=== PATIENT | male | born 1925 | race Caucasian/White ===

== ENCOUNTER → 2016-08-21 | Outpatient (CLI) | payer MEDICARE, BC ==
[~2016-08-21] MED LIST: ASPI-496 PO; ASPI-515 PO; COLE1TAB4 PO; CYAN10008 PO; CYAN1TAB29 PO; HYDR-3240 PO; LEVO75TA5 PO; OMEP-110 PO
== END | disposition home or self-care (01) ==
LOC: STAR 12:50
PROVIDERS: ATTEND Internal Medicine
DX: Z01.818 Encounter for other preprocedural examination (principal); D64.9 Anemia, unspecified; R63.4 Abnormal weight loss
CPT/HCPCS: 36415; 85025; 93005

== ENCOUNTER 2016-09-02 06:49 | Day surgery (SDC) | payer MEDICARE, BC ==
[~2016-09-02] VITALS: Ht 188 cm; Wt 72.0 kg
[2016-09-02] MEDS ORDERED: LACTATED RINGERS 1,000 ML IV SCH (07:29)
[2016-09-02] MEDS ORDERED: ASPI-496 PO (07:29)
[2016-09-02 07:30] VITALS: BP 111/61
[2016-09-02] MEDS ORDERED: PROPOFOL 10 MG/ML, 50ML ONE (09:12)
[2016-09-02] MEDS ORDERED: SODIUM CHLORIDE 0.9%, 500ML IVBOLUS ONE (12:50)
[2016-09-02] MEDS ORDERED: SODIUM CHLORIDE 0.9% 1,000ML IVBOLUS ONE (13:30)
[2016-09-02] MEDS ORDERED: OMNIPAQUE 350 MG/ML, 100ML BOTTLE ONE (16:07)
== END 2016-09-02 15:25 ==
LOC: OUT 06:49
PROVIDERS: ATTEND Internal Medicine
DX: C18.4 Malignant neoplasm of transverse colon (principal); K57.30 Diverticulosis of large intestine without perforation or abscess without bleeding; K56.69 Other intestinal obstruction; D50.9 Iron deficiency anemia, unspecified; K64.9 Unspecified hemorrhoids; K44.9 Diaphragmatic hernia without obstruction or gangrene; K21.9 Gastro-esophageal reflux disease without esophagitis; E03.9 Hypothyroidism, unspecified; Z98.49 Cataract extraction status, unspecified eye; Z87.39 Personal history of other diseases of the musculoskeletal system and connective tissue; Z79.82 Long term (current) use of aspirin; Z85.46 Personal history of malignant neoplasm of prostate; Z90.49 Acquired absence of other specified parts of digestive tract; Z96.659 Presence of unspecified artificial knee joint
CPT/HCPCS: 36415; 45380; 74177; 82378; 82565; 88305; J2704; J7040; J7120; Q9967

== ENCOUNTER 2016-09-14 16:41 | Inpatient (IN) | payer MEDICARE, BC ==
[~2016-09-14] VITALS: Ht 185.4 cm; Wt 73.2 kg
[~2016-09-14 16:41] MED LIST changes: -APIX2.5T PO; -OMNIPAQUE 350 MG/ML, 75ML BOTTLE ONE
[2016-09-14] MEDS ORDERED: SODIUM CHLORIDE 0.9% 1,000 ML IV ONE (16:53)
[2016-09-14] MEDS ORDERED: SODIUM CHLORIDE FLUSH 10ML SYR IVF ONE ×2 (17:00→18:00)
[2016-09-14 17:58] LABS: BLOOD UREA NITROGEN 32 mg/dL (7-18)
[2016-09-14 18:04] LABS: DIFF TOTAL CELLS COUNTED 100 CELL DIFF
[2016-09-14 18:05] LABS: IS PT STATUS REG ER OR PRE ER? YES
[2016-09-14 18:09] LABS: VERIFY COUNTS? YES
[2016-09-14 18:10] LABS: ANISOCYTOSIS 1+; HYPOCHROMIA 1+; OVALOCYTES 1+; POIKILOCYTOSIS 1+; POLYCHROMASIA 1+; SCHISTOCYTES 1+; SPHEROCYTES 1+
[2016-09-14 18:11] LABS: ACANTHOCYTES 1+
[2016-09-14] MEDS ORDERED: HEPARIN 5,000 UNITS/ML, 1ML ONE (18:22)
[2016-09-14] MEDS ORDERED: HEPARIN 25,000 UNITS/500ML PMX 500 ML ONE (18:22)
[2016-09-14] MEDS ORDERED: HEPARIN 5,000 UNITS/ML, 1ML IV ONE (18:30)
[2016-09-14] MEDS ORDERED: HEPARIN 25,000 UNITS/500ML PMX 500 ML IV PRN (18:30)
[2016-09-14] MEDS ORDERED: HEPARIN 5,000 UNITS/ML, 1ML IV PRN (18:30)
[2016-09-14 19:58] VITALS: BP 118/65
[2016-09-14] MEDS ORDERED: ACETAMINOPHEN 325 MG TABLET PO PRN (21:00)
[2016-09-14] MEDS ORDERED: ONDANSETRON ODT 4 MG PO PRN (21:00)
[2016-09-14 22:18] VITALS: BP 125/63
[2016-09-15 00:10] VITALS: BP 115/59
[2016-09-15 00:43] LABS: IS PT STATUS REG ER OR PRE ER? NO
[2016-09-15 00:47] VITALS: BP 116/65
[2016-09-15 00:57] LABS: OCCBLD OBC PASS
[2016-09-15] MEDS ORDERED: HEPARIN 5,000 UNITS/ML, 1ML ONE (02:08)
[2016-09-15] MEDS: HEPARIN 5,000 UNITS/ML, 1ML IV PRN ×2 (02:23→10:29)
[2016-09-15] MEDS ORDERED: HEPARIN 25,000 UNITS/500ML PMX 500 ML IV PRN (02:30)
[2016-09-15 02:41] VITALS: BP 116/62
[2016-09-15] MEDS ORDERED: COLESTIPOL 1 GM TABLET PO SCH (09:00)
[2016-09-15] MEDS ORDERED: LEVOTHYROXINE 75 MCG TABLET PO SCH (09:00)
[2016-09-15] MEDS ORDERED: OMEPRAZOLE 20 MG CAPSULE.DR PO SCH (09:00)
[2016-09-15 13:18] VITALS: BP 139/70
[2016-09-15] MEDS ORDERED: APIX2.5T PO (14:39)
[2016-09-15] MEDS ORDERED: APIXABAN 2.5 MG TABLET PO SCH (16:00)
== END 2016-09-15 16:40 | disposition home or self-care (01) | DRG 374 ==
LOC: ED 17:20 → EDIP 17:21 → ED 17:35 → 3NW 18:51 → DCLOUNGE 09-15 16:11
PROVIDERS: ADMIT Family Medicine; ATTEND Family Medicine
PROC: 30233N1 Transfusion of Nonautologous Red Blood Cells into Peripheral Vein, Percutaneous Approach (ICD-10-PCS; principal; 2016-09-14)
PROC: 30233N1 Transfusion of Nonautologous Red Blood Cells into Peripheral Vein, Percutaneous Approach (ICD-10-PCS; 2016-09-15)
DX: C18.4 Malignant neoplasm of transverse colon (principal); I26.99 Other pulmonary embolism without acute cor pulmonale; E46 Unspecified protein-calorie malnutrition; D50.9 Iron deficiency anemia, unspecified; E03.9 Hypothyroidism, unspecified; I25.10 Atherosclerotic heart disease of native coronary artery without angina pectoris; N18.9 Chronic kidney disease, unspecified; Z66 Do not resuscitate; R19.5 Other fecal abnormalities; Z85.038 Personal history of other malignant neoplasm of large intestine; Z85.46 Personal history of malignant neoplasm of prostate; Z87.891 Personal history of nicotine dependence; Z68.21 Body mass index [BMI] 21.0-21.9, adult
CPT/HCPCS: 36415; 71260; 80048; 82040; 82272; 82565; 83735; 83880; 84100; 84134; 84484; 85025; 85520; 85610; 85730; 86850; 86900; 86923; 87324; 93005; 93970; 96374; J1644; Q9967; J7030; P9016

== ENCOUNTER → 2016-09-14 | Outpatient (CLI) | payer MEDICARE, BC ==
[~2016-09-14] MED LIST changes: +APIX2.5T PO; +OMNIPAQUE 350 MG/ML, 75ML BOTTLE ONE
== END | disposition home or self-care (01) ==
LOC: CFH 14:14
PROVIDERS: ATTEND Surgery
DX: C18.4 Malignant neoplasm of transverse colon (principal); I26.99 Other pulmonary embolism without acute cor pulmonale; J43.2 Centrilobular emphysema; R19.00 Intra-abdominal and pelvic swelling, mass and lump, unspecified site
CPT/HCPCS: 71260; 82565; Q9967

== ENCOUNTER 2016-09-22 23:48 | Inpatient (IN) | payer MEDICARE, BC ==
[~2016-09-22] VITALS: Ht 185.4 cm; Wt 91.0 kg
[~2016-09-22 23:48] MED LIST changes: +APIX2.5T PO
[2016-09-23] VITALS (7 sets, daily range): BP systolic 97–125; BP diastolic 50–66
[2016-09-23] MEDS ORDERED: SODIUM CHLORIDE 0.9% 1,000ML IVBOLUS ONE (00:30)
[2016-09-23] MEDS ORDERED: ACETAMINOPHEN 325 MG TABLET PO ONE (00:30)
[2016-09-23] MEDS ORDERED: SODIUM CHLORIDE FLUSH 10ML SYR IVF ONE (00:30)
[2016-09-23] MEDS ORDERED: ACETAMINOPHEN 325 MG TABLET ONE (00:40)
[2016-09-23 01:00] LABS: ASPARTATE AMINO TRANSFERASE 22 U/L (15-37); BLOOD UREA NITROGEN 35 mg/dL (7-18)
[2016-09-23] MEDS ORDERED: OMNIPAQUE 350 MG/ML, 100ML BOTTLE ONE (02:16)
[2016-09-23] MEDS ORDERED: PIPERACILLIN/TAZO/PMX 3.375GM 50 ML IVPB ONE (03:00)
[2016-09-23] MEDS ORDERED: SODIUM CHLORIDE 0.9%, 500ML IVBOLUS ONE (03:00)
[2016-09-23] MEDS ORDERED: VANCOMYCIN PER PHARMACY MC ONE (03:00)
[2016-09-23] MEDS ORDERED: PIPERACILLIN/TAZO/PMX 3.375GM 50 ML ONE (03:08)
[2016-09-23] MEDS ORDERED: VANCOMYCIN 1,400 MG in SODIUM CHLORIDE 0.9% 250 ML IV ONE (03:30)
[2016-09-23] MEDS ORDERED: VANCOMYCIN PER PHARMACY MC PRN (04:00)
[2016-09-23] MEDS: SODIUM CHLORIDE 0.9% 1,000 ML IV SCH ×2 (04:09→19:00)
[2016-09-23] MEDS ORDERED: PHARMACOKINETIC MONITORING MC PRN (04:30)
[2016-09-23] MEDS: LEVOTHYROXINE 75 MCG TABLET PO SCH (05:48)
[2016-09-23] MEDS ORDERED: DIPHENHYDRAMINE 50 MG/ML, 1ML IVPush ONE (09:00)
[2016-09-23] MEDS: Cyanocobalamin/Folic Acid** (Vitamin B12-Folic Acid Tablet**) PO SCH (09:00)
[2016-09-23] MEDS ORDERED: PIPERACILLIN/TAZO 2.25 GM in SODIUM CHLORIDE 0.9% 50 ML IV SCH (09:00)
[2016-09-23] MEDS: COLESTIPOL 1 GM TABLET PO SCH (09:43)
[2016-09-23] MEDS: APIXABAN 2.5 MG TABLET PO SCH ×2 (09:43→19:45)
[2016-09-23] MEDS: OMEPRAZOLE 20 MG CAPSULE.DR PO SCH (09:43)
[2016-09-23] MEDS: PIPERACILLIN/TAZO/PMX 3.375GM 50 ML IV SCH ×2 (14:53→19:45)
[2016-09-24 01:35] VITALS: BP 110/64
[2016-09-24] MEDS: PIPERACILLIN/TAZO/PMX 3.375GM 50 ML IV SCH ×4 (02:56→22:09)
[2016-09-24 04:49] LABS: BLOOD UREA NITROGEN 27 mg/dL (7-18)
[2016-09-24] MEDS: SODIUM CHLORIDE 0.9% 1,000 ML IV SCH ×2 (05:19→22:11)
[2016-09-24] MEDS: LEVOTHYROXINE 75 MCG TABLET PO SCH (05:19)
[2016-09-24] MEDS ORDERED: SODIUM CHLORIDE 0.9%, 500ML IVBOLUS ONE (07:00)
[2016-09-24 07:16] VITALS: BP 105/59
[2016-09-24] MEDS: OMEPRAZOLE 20 MG CAPSULE.DR PO SCH (08:17)
[2016-09-24] MEDS: Cyanocobalamin/Folic Acid** (Vitamin B12-Folic Acid Tablet**) PO SCH (08:17)
[2016-09-24] MEDS: APIXABAN 2.5 MG TABLET PO SCH (08:17)
[2016-09-24] MEDS: COLESTIPOL 1 GM TABLET PO SCH (08:17)
[2016-09-24] MEDS ORDERED: VANCOMYCIN 1,300 MG in SODIUM CHLORIDE 0.9% 250 ML IV ONE (10:00)
[2016-09-24] MEDS ORDERED: LIDOCAINE 2%, 20ML ONE (14:26)
[2016-09-24 14:27] VITALS: BP 105/66
[2016-09-24] MEDS ORDERED: FENTANYL PF 100 MCG/2ML ONE (14:29)
[2016-09-24] MEDS: ENOXAPARIN 60 MG/0.6 ML SQ SCH (15:30)
[2016-09-24 19:24] VITALS: BP 127/74
[2016-09-25 01:02] VITALS: BP 129/66
[2016-09-25] MEDS: PIPERACILLIN/TAZO/PMX 3.375GM 50 ML IV SCH ×3 (04:01→16:29)
[2016-09-25 05:25] LABS: OCCBLD OBC PASS
[2016-09-25] MEDS: LEVOTHYROXINE 75 MCG TABLET PO SCH (06:20)
[2016-09-25] MEDS: OMEPRAZOLE 20 MG CAPSULE.DR PO SCH (08:00)
[2016-09-25] MEDS: ENOXAPARIN 60 MG/0.6 ML SQ SCH (08:00)
[2016-09-25] MEDS: Cyanocobalamin/Folic Acid** (Vitamin B12-Folic Acid Tablet**) PO SCH (08:00)
[2016-09-25] MEDS: COLESTIPOL 1 GM TABLET PO SCH (08:00)
[2016-09-25 08:30] VITALS: BP 101/60
[2016-09-25 11:00] VITALS: BP 188/97
[2016-09-25] MEDS: ACETAMINOPHEN 325 MG TABLET PO PRN (11:31)
[2016-09-25 13:54] VITALS: BP 123/70
[2016-09-25] MEDS: SODIUM CHLORIDE 0.9% 1,000 ML IV SCH ×2 (14:38→22:26)
[2016-09-25] MEDS ORDERED: VANCOMYCIN 1,300 MG in SODIUM CHLORIDE 0.9% 250 ML IV ONE (16:00)
[2016-09-25] MEDS ORDERED: TPN PER PHARMACY MC PRN (18:00)
[2016-09-25 19:04] VITALS: BP 115/56
[2016-09-26] VITALS (11 sets, daily range): BP systolic 96–161; BP diastolic 52–94
[2016-09-26] MEDS: ACETAMINOPHEN 325 MG TABLET PO PRN (00:12)
[2016-09-26 05:26] LABS: BLOOD UREA NITROGEN 21 mg/dL (7-18)
[2016-09-26 05:29] LABS: ASPARTATE AMINO TRANSFERASE 21 U/L (15-37)
[2016-09-26] MEDS: LEVOTHYROXINE 75 MCG TABLET PO SCH (05:56)
[2016-09-26] MEDS ORDERED: MAGNESIUM SULFATE PMX 2GM/50ML 50 ML IV ONE (06:00)
[2016-09-26] MEDS ORDERED: DIPHENHYDRAMINE 50 MG/ML, 1ML IVPush ONE (06:00)
[2016-09-26 06:45] LABS: DIFF TOTAL CELLS COUNTED 100 CELL DIFF
[2016-09-26 06:47] LABS: ANISOCYTOSIS 1+; VERIFY COUNTS? YES
[2016-09-26 06:48] LABS: OVALOCYTES 1+; POIKILOCYTOSIS 1+; POLYCHROMASIA 1+
[2016-09-26] MEDS: Cyanocobalamin/Folic Acid** (Vitamin B12-Folic Acid Tablet**) PO SCH (09:00)
[2016-09-26] MEDS: COLESTIPOL 1 GM TABLET PO SCH (09:11)
[2016-09-26] MEDS: OMEPRAZOLE 20 MG CAPSULE.DR PO SCH (09:12)
[2016-09-26] MEDS: SODIUM CHLORIDE 0.9% 1,000 ML IV SCH ×3 (09:13→19:37)
[2016-09-26] MEDS ORDERED: DIPHENHYDRAMINE 50 MG/ML, 1ML ONE (12:00)
[2016-09-26] MEDS ORDERED: AMINO ACID 10% IV SCH (17:00)
[2016-09-26] MEDS ORDERED: DEXTROSE 70% IV SCH (17:00)
[2016-09-26] MEDS ORDERED: FAT EMULSIONS IV SCH (17:00)
[2016-09-26] MEDS ORDERED: FILTER, DISP 1.2 MICRON FOR TPN/PVN IV PRN (17:00)
[2016-09-26] MEDS ORDERED: [UNRECOGNIZED DRUG - OTHER] IV SCH (17:00)
[2016-09-26] MEDS ORDERED: SODIUM CHLORIDE 0.9% 1,000 ML IV SCH (17:00)
[2016-09-27] MEDS ORDERED: INSULIN REGULAR MEDIUM DOSE Q6H X 48HRS SQ-INSULIN SCH (02:00)
[2016-09-27] MEDS ORDERED: DEXTROSE 50%, 50ML SYRINGE IVPush PRN (02:00)
[2016-09-27] MEDS ORDERED: DEXTROSE 10% 500 ML IV PRN (02:00)
[2016-09-27 02:08] VITALS: BP 142/75
[2016-09-27] MEDS: SODIUM CHLORIDE 0.9% 1,000 ML IV SCH ×3 (02:36→21:49)
[2016-09-27 05:08] LABS: BLOOD UREA NITROGEN 21 mg/dL (7-18)
[2016-09-27] MEDS: LEVOTHYROXINE 75 MCG TABLET PO SCH (06:11)
[2016-09-27 06:40] VITALS: BP 131/71
[2016-09-27] MEDS: Cyanocobalamin/Folic Acid** (Vitamin B12-Folic Acid Tablet**) PO SCH (08:46)
[2016-09-27] MEDS: OMEPRAZOLE 20 MG CAPSULE.DR PO SCH (08:50)
[2016-09-27] MEDS: COLESTIPOL 1 GM TABLET PO SCH (08:50)
[2016-09-27 13:42] VITALS: BP 128/75
[2016-09-27 19:27] VITALS: BP 141/84
[2016-09-28 01:26] VITALS: BP 152/68
[2016-09-28] MEDS: SODIUM CHLORIDE 0.9% 1,000 ML IV SCH ×3 (03:38→23:06)
[2016-09-28 04:55] LABS: BLOOD UREA NITROGEN 19 mg/dL (7-18)
[2016-09-28] MEDS: LEVOTHYROXINE 75 MCG TABLET PO SCH (05:46)
[2016-09-28 07:04] VITALS: BP 139/71
[2016-09-28] MEDS ORDERED: SODIUM PHOSPHATE 20 MMOL in SODIUM CHLORIDE 0.9% 500 ML IV ONE (08:00)
[2016-09-28] MEDS: OMEPRAZOLE 20 MG CAPSULE.DR PO SCH (08:42)
[2016-09-28] MEDS: COLESTIPOL 1 GM TABLET PO SCH (08:43)
[2016-09-28] MEDS: Cyanocobalamin/Folic Acid** (Vitamin B12-Folic Acid Tablet**) PO SCH (08:46)
[2016-09-28 13:26] VITALS: BP 145/83
[2016-09-28 19:52] VITALS: BP 155/89
[2016-09-28] MEDS ORDERED: TPN PER PHARMACY MC PRN (20:00)
[2016-09-29 02:35] VITALS: BP 134/82
[2016-09-29] MEDS: SODIUM CHLORIDE 0.9% 1,000 ML IV SCH (04:54)
[2016-09-29] MEDS: LEVOTHYROXINE 75 MCG TABLET PO SCH (04:54)
[2016-09-29 05:55] LABS: BLOOD UREA NITROGEN 18 mg/dL (7-18)
[2016-09-29] MEDS ORDERED: INSULIN REGULAR MEDIUM DOSE QDAY SQ-INSULIN SCH (06:00)
[2016-09-29 07:20] VITALS: BP 158/84
[2016-09-29] MEDS: Cyanocobalamin/Folic Acid** (Vitamin B12-Folic Acid Tablet**) PO SCH (07:58)
[2016-09-29] MEDS: COLESTIPOL 1 GM TABLET PO SCH (07:58)
[2016-09-29] MEDS: OMEPRAZOLE 20 MG CAPSULE.DR PO SCH (07:58)
[2016-09-29 12:57] VITALS: BP 147/84
[2016-09-29] MEDS ORDERED: OMNIPAQUE 350 MG/ML, 100ML BOTTLE ONE (18:56)
[2016-09-29 19:36] VITALS: BP 156/86
[2016-09-30 01:23] VITALS: BP 150/78
[2016-09-30] MEDS ORDERED: SODIUM CHLORIDE 0.9% 1,000 ML IV SCH (03:38)
[2016-09-30] MEDS: LEVOTHYROXINE 75 MCG TABLET PO SCH (05:01)
[2016-09-30 06:30] VITALS: BP 135/75
[2016-09-30 07:38] LABS: BLOOD UREA NITROGEN 14 mg/dL (7-18)
[2016-09-30] MEDS: OMEPRAZOLE 20 MG CAPSULE.DR PO SCH (08:50)
[2016-09-30] MEDS: COLESTIPOL 1 GM TABLET PO SCH (08:51)
[2016-09-30] MEDS: SODIUM CHLORIDE 0.9% 1,000 ML IV SCH ×2 (08:51→21:38)
[2016-09-30] MEDS: Cyanocobalamin/Folic Acid** (Vitamin B12-Folic Acid Tablet**) PO SCH (09:00)
[2016-09-30 13:05] VITALS: BP 152/76
[2016-09-30] MEDS ORDERED: GOLYTELY 4,000ML ORAL.SOL PO ONE (18:00)
[2016-09-30] MEDS: NEOMYCIN SULFATE 500 MG TABLET PO SCH ×2 (18:08→20:34)
[2016-09-30] MEDS: metroNIDAZOLE 500 MG TABLET PO SCH ×2 (18:08→20:35)
[2016-09-30 20:32] VITALS: BP 135/87
[2016-10-01 02:10] VITALS: BP 137/78
[2016-10-01] MEDS: LEVOTHYROXINE 75 MCG TABLET PO SCH (03:58)
[2016-10-01] MEDS: NEOMYCIN SULFATE 500 MG TABLET PO SCH (03:58)
[2016-10-01] MEDS: metroNIDAZOLE 500 MG TABLET PO SCH (03:59)
[2016-10-01 05:23] LABS: ASPARTATE AMINO TRANSFERASE 34 U/L (15-37); BLOOD UREA NITROGEN 10 mg/dL (7-18)
[2016-10-01] MEDS ORDERED: MAGNESIUM SULFATE PMX 2GM/50ML 50 ML IV ONE (06:00)
[2016-10-01 06:48] VITALS: BP 136/78
[2016-10-01] MEDS: OMEPRAZOLE 20 MG CAPSULE.DR PO SCH (07:30)
[2016-10-01] MEDS: Cyanocobalamin/Folic Acid** (Vitamin B12-Folic Acid Tablet**) PO SCH (07:40)
[2016-10-01] MEDS: COLESTIPOL 1 GM TABLET PO SCH (07:40)
[2016-10-01] MEDS: SODIUM CHLORIDE 0.9% 1,000 ML IV SCH (10:40)
[2016-10-01] MEDS ORDERED: PROPOFOL 10 MG/ML, 20ML ONE (13:04)
[2016-10-01] MEDS ORDERED: ROCURONIUM 10 MG/ML ONE (13:04)
[2016-10-01] MEDS ORDERED: PHENYLEPHRINE 10 MG/ML ONE (13:04)
[2016-10-01] MEDS ORDERED: CEFOTETAN 2 GM ONE (13:04)
[2016-10-01] MEDS ORDERED: BUPIVACAINE/PF 0.25% ONE (13:34)
[2016-10-01] MEDS ORDERED: FENTANYL PF 200 MCG, BUPIVACAINE/PF 0.5%, 30ML 20 ML in SODIUM CHLORIDE 0.9% 76 ML EPIDCONT SCH (13:41)
[2016-10-01] MEDS ORDERED: PROMETHAZINE 25 MG/ML, 1ML IV PRN (14:00)
[2016-10-01] MEDS ORDERED: DO NOT GIVE XX SCH ×2 (14:00)
[2016-10-01] MEDS ORDERED: FENTANYL PF 100 MCG/2ML ONE (17:45)
[2016-10-01] MEDS: FENTANYL PF 100 MCG/2ML IV PRN ×2 (17:49→18:03)
[2016-10-01 18:50] VITALS: BP 134/77
[2016-10-01] MEDS ORDERED: LORazepam 2 MG/ML, 1ML IV PRN (19:00)
[2016-10-01] MEDS ORDERED: LORazepam 1MG TABLET PO PRN (19:00)
[2016-10-01] MEDS: FENTANYL PF 100 MCG/2ML EPIDPUSH PRN ×2 (21:03→21:51)
[2016-10-01] MEDS: CEFOTETAN PMX 2GM/50ML 50 ML IVPB SCH (21:51)
[2016-10-01] MEDS: POTASSIUM CHLORIDE 20 MEQ in D5%-0.45% NACL 1,000 ML IV SCH (21:51)
[2016-10-01] MEDS: SODIUM CHLORIDE FLUSH 10ML SYR IVF SCH (21:52)
[2016-10-01 23:49] VITALS: BP 144/88
[2016-10-02] MEDS: FENTANYL PF 100 MCG/2ML EPIDPUSH PRN (00:18)
[2016-10-02] MEDS ORDERED: PHARMACY INSTRUCTION MC PRN (02:00)
[2016-10-02] MEDS: FENTANYL EPIDCONT SCH ×2 (03:24→17:34)
[2016-10-02] MEDS: BUPIVACAINE EPIDCONT SCH ×2 (03:24→17:34)
[2016-10-02] MEDS: SODIUM CHLORIDE 0.9% EPIDCONT SCH ×2 (03:24→17:34)
[2016-10-02 03:33] VITALS: BP 139/82
[2016-10-02] MEDS: LEVOTHYROXINE 75 MCG TABLET PO SCH (04:31)
[2016-10-02 05:34] LABS: BLOOD UREA NITROGEN 13 mg/dL (7-18)
[2016-10-02] MEDS: POTASSIUM CHLORIDE 20 MEQ in D5%-0.45% NACL 1,000 ML IV SCH ×2 (05:34→13:05)
[2016-10-02] MEDS ORDERED: BUPIVACAINE 0.25% ONE (06:18)
[2016-10-02 06:26] LABS: DIFF TOTAL CELLS COUNTED 100 CELL DIFF
[2016-10-02 06:29] LABS: VERIFY COUNTS? YES
[2016-10-02] MEDS: OMEPRAZOLE 20 MG CAPSULE.DR PO SCH (07:30)
[2016-10-02 07:50] VITALS: BP 151/80
[2016-10-02] MEDS: Cyanocobalamin/Folic Acid** (Vitamin B12-Folic Acid Tablet**) PO SCH (08:58)
[2016-10-02] MEDS: COLESTIPOL 1 GM TABLET PO SCH (08:58)
[2016-10-02] MEDS: SODIUM CHLORIDE FLUSH 10ML SYR IVF SCH ×2 (09:00→20:30)
[2016-10-02] MEDS: PIPERACILLIN/TAZO/PMX 3.375GM 50 ML IV SCH ×2 (09:10→15:03)
[2016-10-02] MEDS: CEFOTETAN PMX 2GM/50ML 50 ML IVPB SCH (10:22)
[2016-10-02 13:27] VITALS: BP 137/81
[2016-10-02] MEDS ORDERED: FENTANYL PF 200 MCG, BUPIVACAINE/PF 0.5%, 30ML 20 ML in SODIUM CHLORIDE 0.9% 76 ML EPIDCONT SCH (13:41)
[2016-10-02] MEDS ORDERED: INSULIN REGULAR HIGH DOSE Q6H X 48HRS SQ-INSULIN SCH (15:00)
[2016-10-02] MEDS: PANTOPRAZOLE 40 MG IV IVPush SCH (15:03)
[2016-10-02] MEDS ORDERED: DEXTROSE 10% 500 ML IV PRN (17:00)
[2016-10-02] MEDS ORDERED: AMINO ACID 10% IV SCH (17:00)
[2016-10-02] MEDS ORDERED: FAT EMULSIONS IV SCH (17:00)
[2016-10-02] MEDS ORDERED: [UNRECOGNIZED DRUG - OTHER] IV SCH (17:00)
[2016-10-02] MEDS ORDERED: DEXTROSE 70% IV SCH (17:00)
[2016-10-02] MEDS ORDERED: FILTER, DISP 1.2 MICRON FOR TPN/PVN IV PRN (17:00)
[2016-10-02] MEDS ORDERED: TPN PER PHARMACY MC PRN (17:00)
[2016-10-02] MEDS ORDERED: DEXTROSE 50%, 50ML SYRINGE IVPush PRN (17:00)
[2016-10-02 18:49] VITALS: BP 147/78
[2016-10-02] MEDS: D5%-0.45% NACL 1,000 ML IV SCH (19:26)
[2016-10-02] MEDS: PIPERACILLIN/TAZO(ZOSYN) 2.25 GM in NS 50 ML IVPB SCH (20:30)
[2016-10-02] MEDS: INSULIN REGULAR HIGH DOSE Q6H X 48HRS SQ-INSULIN SCH (23:46)
[2016-10-03 02:07] VITALS: BP 164/85
[2016-10-03] MEDS: PIPERACILLIN/TAZO(ZOSYN) 2.25 GM in NS 50 ML IVPB SCH ×4 (03:52→20:29)
[2016-10-03] MEDS: INSULIN REGULAR HIGH DOSE Q6H X 48HRS SQ-INSULIN SCH ×4 (05:00→23:00)
[2016-10-03] MEDS: BUPIVACAINE EPIDCONT SCH ×2 (05:33→15:53)
[2016-10-03] MEDS: SODIUM CHLORIDE 0.9% EPIDCONT SCH ×2 (05:33→15:53)
[2016-10-03] MEDS: FENTANYL EPIDCONT SCH ×2 (05:33→15:53)
[2016-10-03 05:59] LABS: BLOOD UREA NITROGEN 13 mg/dL (7-18)
[2016-10-03] MEDS: LEVOTHYROXINE 75 MCG TABLET PO SCH ×2 (06:00→23:07)
[2016-10-03] MEDS: D5%-0.45% NACL 1,000 ML IV SCH ×2 (06:25→20:30)
[2016-10-03] MEDS: Cyanocobalamin/Folic Acid** (Vitamin B12-Folic Acid Tablet**) PO SCH (07:34)
[2016-10-03] MEDS: COLESTIPOL 1 GM TABLET PO SCH (07:34)
[2016-10-03] MEDS: SODIUM CHLORIDE FLUSH 10ML SYR IVF SCH ×2 (08:16→20:30)
[2016-10-03] MEDS: PANTOPRAZOLE 40 MG IV IVPush SCH (08:16)
[2016-10-03 09:11] VITALS: BP 150/79
[2016-10-03] MEDS ORDERED: FILTER, DISP 1.2 MICRON FOR TPN/PVN IV PRN (09:30)
[2016-10-03 14:40] VITALS: BP 160/83
[2016-10-03] MEDS ORDERED: [UNRECOGNIZED DRUG - OTHER] IV SCH (17:00)
[2016-10-03] MEDS ORDERED: AMINO ACID 10% IV SCH (17:00)
[2016-10-03] MEDS ORDERED: FAT EMULSIONS IV SCH (17:00)
[2016-10-03] MEDS ORDERED: DEXTROSE 70% IV SCH (17:00)
[2016-10-03] MEDS: FILTER, DISP 1.2 MICRON FOR TPN/PVN IV PRN (17:18)
[2016-10-03 19:41] VITALS: BP 151/98
[2016-10-04 00:55] VITALS: BP 148/78
[2016-10-04] MEDS: PIPERACILLIN/TAZO(ZOSYN) 2.25 GM in NS 50 ML IVPB SCH ×4 (02:24→23:04)
[2016-10-04] MEDS ORDERED: BUPIVACAINE EPIDCONT SCH (02:30)
[2016-10-04] MEDS ORDERED: SODIUM CHLORIDE 0.9% EPIDCONT SCH (02:30)
[2016-10-04] MEDS ORDERED: FENTANYL EPIDCONT SCH (02:30)
[2016-10-04 04:17] LABS: BLOOD UREA NITROGEN 11 mg/dL (7-18)
[2016-10-04] MEDS: INSULIN REGULAR HIGH DOSE Q6H X 48HRS SQ-INSULIN SCH ×4 (05:00→23:00)
[2016-10-04 07:06] VITALS: BP 150/87
[2016-10-04] MEDS: COLESTIPOL 1 GM TABLET PO SCH (07:35)
[2016-10-04] MEDS: Cyanocobalamin/Folic Acid** (Vitamin B12-Folic Acid Tablet**) PO SCH (07:35)
[2016-10-04] MEDS: SODIUM CHLORIDE FLUSH 10ML SYR IVF SCH ×2 (08:00→21:17)
[2016-10-04] MEDS: PANTOPRAZOLE 40 MG IV IVPush SCH (08:00)
[2016-10-04 11:17] LABS: IS PT STATUS REG ER OR PRE ER? NO
[2016-10-04] MEDS ORDERED: LACTATED RINGERS 500 ML IVBOLUS ONE (12:00)
[2016-10-04] MEDS ORDERED: HYDROmorphone 2 MG/ML, 1ML IVPush PRN (12:30)
[2016-10-04] MEDS ORDERED: SODIUM CHLORIDE 0.9% 1,000 ML IV ONE (12:30)
[2016-10-04] MEDS ORDERED: SODIUM CHLORIDE 0.9% 1,000ML IVBOLUS ONE (12:30)
[2016-10-04] MEDS: ENOXAPARIN 40 MG/0.4 ML SQ SCH (13:34)
[2016-10-04 14:37] VITALS: BP 131/77
[2016-10-04] MEDS ORDERED: DEXTROSE 70% IV SCH (17:00)
[2016-10-04] MEDS ORDERED: [UNRECOGNIZED DRUG - OTHER] IV SCH (17:00)
[2016-10-04] MEDS ORDERED: FAT EMULSIONS IV SCH (17:00)
[2016-10-04] MEDS ORDERED: AMINO ACID 10% IV SCH (17:00)
[2016-10-04 17:21] LABS: ASPARTATE AMINO TRANSFERASE 11 U/L (15-37); BLOOD UREA NITROGEN 13 mg/dL (7-18)
[2016-10-04 17:27] LABS: IS PT STATUS REG ER OR PRE ER? NO
[2016-10-04] MEDS ORDERED: NALOXONE 1 MG/ML, 2ML ONE (17:39)
[2016-10-04 19:00] VITALS: BP 115/76
[2016-10-04 23:52] LABS: IS PT STATUS REG ER OR PRE ER? NO
[2016-10-05 02:30] VITALS: BP 113/73
[2016-10-05] MEDS: LEVOTHYROXINE 75 MCG TABLET PO SCH (05:04)
[2016-10-05] MEDS: PIPERACILLIN/TAZO(ZOSYN) 2.25 GM in NS 50 ML IVPB SCH ×4 (05:04→22:55)
[2016-10-05 05:23] LABS: ASPARTATE AMINO TRANSFERASE 11 U/L (15-37); BLOOD UREA NITROGEN 16 mg/dL (7-18)
[2016-10-05 05:33] LABS: IS PT STATUS REG ER OR PRE ER? NO
[2016-10-05 06:40] VITALS: BP 134/80
[2016-10-05] MEDS: Cyanocobalamin/Folic Acid** (Vitamin B12-Folic Acid Tablet**) PO SCH (07:54)
[2016-10-05] MEDS: COLESTIPOL 1 GM TABLET PO SCH (07:55)
[2016-10-05] MEDS: PANTOPRAZOLE 40 MG IV IVPush SCH (08:17)
[2016-10-05] MEDS: SODIUM CHLORIDE FLUSH 10ML SYR IVF SCH ×2 (08:17→21:05)
[2016-10-05] MEDS: LEVOTHYROXINE 100 MCG INJ IVPush SCH (08:17)
[2016-10-05] MEDS: INSULIN REGULAR HIGH DOSE QDAY SQ-INSULIN SCH (08:24)
[2016-10-05] MEDS: D5%-0.45% NACL 1,000 ML IV SCH (12:24)
[2016-10-05] MEDS: ENOXAPARIN 40 MG/0.4 ML SQ SCH (12:33)
[2016-10-05 13:03] VITALS: BP 125/78
[2016-10-05] MEDS: HYDROmorphone 2 MG/ML, 1ML IVPush PRN ×2 (14:24→17:16)
[2016-10-05] MEDS ORDERED: DEXTROSE 70% IV SCH (17:00)
[2016-10-05] MEDS ORDERED: FAT EMULSIONS IV SCH (17:00)
[2016-10-05] MEDS ORDERED: [UNRECOGNIZED DRUG - OTHER] IV SCH (17:00)
[2016-10-05] MEDS ORDERED: AMINO ACID 10% IV SCH (17:00)
[2016-10-05 19:16] VITALS: BP 118/92
[2016-10-05] MEDS: FILTER, DISP 1.2 MICRON FOR TPN/PVN IV PRN (21:06)
[2016-10-06 01:24] VITALS: BP 112/66
[2016-10-06] MEDS: PIPERACILLIN/TAZO(ZOSYN) 2.25 GM in NS 50 ML IVPB SCH ×3 (04:58→18:39)
[2016-10-06 06:30] LABS: BLOOD UREA NITROGEN 20 mg/dL (7-18)
[2016-10-06] MEDS: COLESTIPOL 1 GM TABLET PO SCH (07:16)
[2016-10-06] MEDS: INSULIN REGULAR HIGH DOSE QDAY SQ-INSULIN SCH (07:16)
[2016-10-06] MEDS: Cyanocobalamin/Folic Acid** (Vitamin B12-Folic Acid Tablet**) PO SCH (07:16)
[2016-10-06] MEDS: PANTOPRAZOLE 40 MG IV IVPush SCH (07:42)
[2016-10-06] MEDS: SODIUM CHLORIDE FLUSH 10ML SYR IVF SCH ×2 (07:42→19:46)
[2016-10-06] MEDS: LEVOTHYROXINE 100 MCG INJ IVPush SCH (07:42)
[2016-10-06] MEDS: HYDROmorphone 2 MG/ML, 1ML IVPush PRN ×3 (07:42→23:06)
[2016-10-06 07:43] VITALS: BP 150/81
[2016-10-06] MEDS: ENOXAPARIN 40 MG/0.4 ML SQ SCH (11:50)
[2016-10-06 13:24] VITALS: BP 145/83
[2016-10-06] MEDS ORDERED: OMNIPAQUE 350 MG/ML, 150 ML BOTTLE ONE (16:07)
[2016-10-06] MEDS ORDERED: DEXTROSE 70% IV SCH (17:00)
[2016-10-06] MEDS ORDERED: AMINO ACID 10% IV SCH (17:00)
[2016-10-06] MEDS ORDERED: FAT EMULSIONS IV SCH (17:00)
[2016-10-06] MEDS ORDERED: [UNRECOGNIZED DRUG - OTHER] IV SCH (17:00)
[2016-10-06] MEDS: FILTER, DISP 1.2 MICRON FOR TPN/PVN IV PRN (18:39)
[2016-10-06] MEDS: ENOXAPARIN 80 MG/0.8 ML SQ SCH (19:46)
[2016-10-06] MEDS: D5%-0.45% NACL 1,000 ML IV SCH (19:47)
[2016-10-06] MEDS ORDERED: ENOXAPARIN 80 MG/0.8 ML SQ SCH (20:00)
[2016-10-06 21:12] VITALS: BP 122/79
[2016-10-07] MEDS: PIPERACILLIN/TAZO(ZOSYN) 2.25 GM in NS 50 ML IVPB SCH ×4 (00:48→18:38)
[2016-10-07 02:08] VITALS: BP 118/75
[2016-10-07] MEDS: HYDROmorphone 2 MG/ML, 1ML IVPush PRN ×3 (04:17→16:40)
[2016-10-07 05:01] LABS: BLOOD UREA NITROGEN 27 mg/dL (7-18)
[2016-10-07 07:59] VITALS: BP 127/70
[2016-10-07] MEDS: COLESTIPOL 1 GM TABLET PO SCH (08:06)
[2016-10-07] MEDS: Cyanocobalamin/Folic Acid** (Vitamin B12-Folic Acid Tablet**) PO SCH (08:07)
[2016-10-07] MEDS: INSULIN REGULAR HIGH DOSE QDAY SQ-INSULIN SCH (08:30)
[2016-10-07] MEDS: SODIUM CHLORIDE FLUSH 10ML SYR IVF SCH ×2 (08:31→20:59)
[2016-10-07] MEDS: ENOXAPARIN 80 MG/0.8 ML SQ SCH ×2 (08:31→20:59)
[2016-10-07] MEDS: LEVOTHYROXINE 100 MCG INJ IVPush SCH (08:31)
[2016-10-07] MEDS: PANTOPRAZOLE 40 MG IV IVPush SCH (08:33)
[2016-10-07 12:50] LABS: OCCBLD OBC PASS
[2016-10-07 13:55] VITALS: BP 142/78
[2016-10-07] MEDS ORDERED: DEXTROSE 70% IV SCH (17:00)
[2016-10-07] MEDS ORDERED: FAT EMULSIONS IV SCH (17:00)
[2016-10-07] MEDS ORDERED: AMINO ACID 10% IV SCH (17:00)
[2016-10-07] MEDS ORDERED: [UNRECOGNIZED DRUG - OTHER] IV SCH (17:00)
[2016-10-07] MEDS ORDERED: FILTER, DISP 1.2 MICRON FOR TPN/PVN IV PRN (17:00)
[2016-10-07] MEDS: D5%-0.45% NACL 1,000 ML IV SCH (20:58)
[2016-10-07 22:18] VITALS: BP 116/67
[2016-10-08 01:00] VITALS: BP 134/71
[2016-10-08] MEDS: PIPERACILLIN/TAZO(ZOSYN) 2.25 GM in NS 50 ML IVPB SCH ×2 (03:03→06:36)
[2016-10-08 06:04] LABS: BLOOD UREA NITROGEN 29 mg/dL (7-18)
[2016-10-08 07:14] VITALS: BP 149/73
[2016-10-08] MEDS: SODIUM CHLORIDE FLUSH 10ML SYR IVF SCH ×2 (09:09→21:22)
[2016-10-08] MEDS: Cyanocobalamin/Folic Acid** (Vitamin B12-Folic Acid Tablet**) PO SCH (09:09)
[2016-10-08] MEDS: INSULIN REGULAR HIGH DOSE QDAY SQ-INSULIN SCH (09:09)
[2016-10-08] MEDS: COLESTIPOL 1 GM TABLET PO SCH (09:09)
[2016-10-08] MEDS: PANTOPRAZOLE 40 MG IV IVPush SCH (09:59)
[2016-10-08] MEDS: LEVOTHYROXINE 100 MCG INJ IVPush SCH (10:03)
[2016-10-08] MEDS: HEPARIN 5,000 UNITS/ML, 1ML SQ SCH ×2 (12:31→21:20)
[2016-10-08 14:42] VITALS: BP 121/71
[2016-10-08] MEDS ORDERED: DEXTROSE 70% IV SCH (17:00)
[2016-10-08] MEDS ORDERED: FAT EMULSIONS IV SCH (17:00)
[2016-10-08] MEDS ORDERED: [UNRECOGNIZED DRUG - OTHER] IV SCH (17:00)
[2016-10-08] MEDS ORDERED: FILTER, DISP 1.2 MICRON FOR TPN/PVN IV PRN (17:00)
[2016-10-08] MEDS ORDERED: AMINO ACID 10% IV SCH (17:00)
[2016-10-08] MEDS ORDERED: D5%-0.45% NACL 1,000 ML IV SCH (18:10)
[2016-10-08 18:28] VITALS: BP 127/71
[2016-10-09 02:10] VITALS: BP 144/88
[2016-10-09] MEDS: LEVOTHYROXINE 75 MCG TABLET PO SCH (05:39)
[2016-10-09] MEDS: HEPARIN 5,000 UNITS/ML, 1ML SQ SCH ×3 (05:39→20:25)
[2016-10-09 06:25] LABS: BLOOD UREA NITROGEN 29 mg/dL (7-18)
[2016-10-09 06:35] VITALS: BP 138/78
[2016-10-09] MEDS: INSULIN REGULAR HIGH DOSE QDAY SQ-INSULIN SCH (07:37)
[2016-10-09] MEDS: OMEPRAZOLE 20 MG CAPSULE.DR PO SCH (09:34)
[2016-10-09] MEDS: Cyanocobalamin/Folic Acid** (Vitamin B12-Folic Acid Tablet**) PO SCH (09:35)
[2016-10-09] MEDS: SODIUM CHLORIDE FLUSH 10ML SYR IVF SCH ×2 (09:35→20:25)
[2016-10-09] MEDS: COLESTIPOL 1 GM TABLET PO SCH (09:36)
[2016-10-09 15:00] VITALS: BP 132/72
[2016-10-09 19:31] VITALS: BP 122/76
[2016-10-10] MEDS: ACETAMINOPHEN 325 MG TABLET PO PRN (00:29)
[2016-10-10 02:42] VITALS: BP 123/78
[2016-10-10] MEDS: HEPARIN 5,000 UNITS/ML, 1ML SQ SCH (05:56)
[2016-10-10 06:09] LABS: BLOOD UREA NITROGEN 28 mg/dL (7-18)
[2016-10-10] MEDS: LEVOTHYROXINE 75 MCG TABLET PO SCH (06:42)
[2016-10-10] MEDS: OMEPRAZOLE 20 MG CAPSULE.DR PO SCH (06:42)
[2016-10-10 07:42] VITALS: BP 140/76
[2016-10-10] MEDS: COLESTIPOL 1 GM TABLET PO SCH (09:40)
[2016-10-10] MEDS: Cyanocobalamin/Folic Acid** (Vitamin B12-Folic Acid Tablet**) PO SCH (09:40)
[2016-10-10] MEDS: SODIUM CHLORIDE FLUSH 10ML SYR IVF SCH ×2 (09:40→21:46)
[2016-10-10 14:06] VITALS: BP 98/62
[2016-10-10 19:24] VITALS: BP 115/66
[2016-10-11 03:14] VITALS: BP 124/77
[2016-10-11 06:04] LABS: BLOOD UREA NITROGEN 26 mg/dL (7-18)
[2016-10-11] MEDS: LEVOTHYROXINE 75 MCG TABLET PO SCH (07:29)
[2016-10-11] MEDS: OMEPRAZOLE 20 MG CAPSULE.DR PO SCH (07:30)
[2016-10-11 08:25] VITALS: BP 131/79
[2016-10-11] MEDS: SODIUM CHLORIDE FLUSH 10ML SYR IVF SCH ×2 (08:44→20:08)
[2016-10-11] MEDS: COLESTIPOL 1 GM TABLET PO SCH (08:45)
[2016-10-11] MEDS: Cyanocobalamin/Folic Acid** (Vitamin B12-Folic Acid Tablet**) PO SCH (08:45)
[2016-10-11 14:59] VITALS: BP 135/82
[2016-10-11 19:52] VITALS: BP 116/61
[2016-10-12 01:38] VITALS: BP 106/53
[2016-10-12] MEDS: LEVOTHYROXINE 75 MCG TABLET PO SCH (05:58)
[2016-10-12 06:59] VITALS: BP 110/63
[2016-10-12] MEDS: OMEPRAZOLE 20 MG CAPSULE.DR PO SCH (07:23)
[2016-10-12] MEDS: COLESTIPOL 1 GM TABLET PO SCH (07:23)
[2016-10-12] MEDS: SODIUM CHLORIDE FLUSH 10ML SYR IVF SCH (07:23)
[2016-10-12] MEDS: Cyanocobalamin/Folic Acid** (Vitamin B12-Folic Acid Tablet**) PO SCH (09:00)
[2016-10-12] MEDS ORDERED: TAMSULOSIN 0.4 MG CAP.ER.24H PO SCH (11:00)
[2016-10-12] MEDS ORDERED: TRAM50TA2 PO (12:42)
[2016-10-12] MEDS ORDERED: TAMS-11 PO (12:42)
[2016-10-12 13:30] VITALS: BP 105/67
[2016-10-12 13:31] VITALS: BP 133/86
== END 2016-10-12 17:30 | DRG 853 ==
LOC: ED 23:59 → EDIP 09-23 02:45 → 3NW 09-23 03:44 → 4NOR 10-01 18:25 → 5SO 10-04 11:48 → 4NOR 10-08 06:06
PROVIDERS: ADMIT Family Medicine; ATTEND Family Medicine
PROC: 30233N1 Transfusion of Nonautologous Red Blood Cells into Peripheral Vein, Percutaneous Approach (ICD-10-PCS; 2016-09-23)
PROC: 06H03DZ Insertion of Intraluminal Device into Inferior Vena Cava, Percutaneous Approach (ICD-10-PCS; 2016-09-24)
PROC: 30233N1 Transfusion of Nonautologous Red Blood Cells into Peripheral Vein, Percutaneous Approach (ICD-10-PCS; 2016-09-26)
PROC: 0DB60ZZ Excision of Stomach, Open Approach (ICD-10-PCS; 2016-10-01)
PROC: 0DBL0ZZ Excision of Transverse Colon, Open Approach (ICD-10-PCS; 2016-10-01)
PROC: 0DB80ZZ Excision of Small Intestine, Open Approach (ICD-10-PCS; 2016-10-01)
PROC: 30233N1 Transfusion of Nonautologous Red Blood Cells into Peripheral Vein, Percutaneous Approach (ICD-10-PCS; 2016-10-01)
PROC: 0DTF0ZZ Resection of Right Large Intestine, Open Approach (ICD-10-PCS; principal; 2016-10-01 13:30)
PROC: 02HV33Z Insertion of Infusion Device into Superior Vena Cava, Percutaneous Approach (ICD-10-PCS; 2016-10-02)
PROC: B548ZZA Ultrasonography of Superior Vena Cava, Guidance (ICD-10-PCS; 2016-10-02)
DX: A41.9 Sepsis, unspecified organism (principal); E43 Unspecified severe protein-calorie malnutrition; I26.99 Other pulmonary embolism without acute cor pulmonale; C18.4 Malignant neoplasm of transverse colon; R64 Cachexia; D68.59 Other primary thrombophilia; J90 Pleural effusion, not elsewhere classified; K56.7 Ileus, unspecified; K92.2 Gastrointestinal hemorrhage, unspecified; E87.2 Acidosis; R65.20 Severe sepsis without septic shock; D50.0 Iron deficiency anemia secondary to blood loss (chronic); E03.9 Hypothyroidism, unspecified; I25.10 Atherosclerotic heart disease of native coronary artery without angina pectoris; K21.9 Gastro-esophageal reflux disease without esophagitis; N18.9 Chronic kidney disease, unspecified; Z66 Do not resuscitate; Z79.01 Long term (current) use of anticoagulants; Z85.038 Personal history of other malignant neoplasm of large intestine; Z68.26 Body mass index [BMI] 26.0-26.9, adult; Z85.46 Personal history of malignant neoplasm of prostate; Z87.891 Personal history of nicotine dependence; Z90.3 Acquired absence of stomach [part of]; Z90.49 Acquired absence of other specified parts of digestive tract
CPT/HCPCS: 36415; 36569; 37191; 71010; 74000; 74177; 74241; 76937; 77001; 80048; 80053; 80202; 81003; 82040; 82272; 82962; 83605; 83735; 84100; 84134; 84145; 84478; 84484; 85014; 85018; 85025; 85610; 85730; 86850; 86900; 86923; 87040; 87324; 88300; 88307; 88309; 93005; 96361; 96365; J0610; J1170; J1644; J1650; J1815; J2543; J2704; J3010; J3370; J3475; J3480; J3490; Q9967; C1751; C1769; C1880; C9113; J1200; J2310; J2370; J3420; J7030; J7040; J7050; P9016; S0074

== ENCOUNTER 2016-12-18 14:07 | Inpatient (IN) | payer MEDICARE, BC ==
[~2016-12-18] VITALS: Ht 188 cm; Wt 92.2 kg
[~2016-12-18 14:07] MED LIST changes: -COLE1TAB4 PO; +COLE1TAB5 PO; +CYAN100072 PO; -CYAN10008 PO; +TAMS-11 PO; +TRAM50TA2 PO
[2016-12-18] MEDS ORDERED: MORPHINE SULFATE 4 MG/ML, 1ML IVPush PRN (14:30)
[2016-12-18] MEDS ORDERED: ONDANSETRON 2MG/ML, 2ML IVPush ONE (14:30)
[2016-12-18] MEDS ORDERED: PLEASE ENTER HEIGHT AND WEIGHT MC SCH (15:00)
[2016-12-18] MEDS ORDERED: ONDANSETRON 2MG/ML, 2ML ONE (15:01)
[2016-12-18] MEDS ORDERED: MORPHINE SULFATE 4 MG/ML, 1ML ONE (15:01)
[2016-12-18 15:06] LABS: HEMATOCRIT 31.2 % (39.2-51.8); HEMOGLOBIN 10.4 g/dL (13.7-18.0); WHITE BLOOD COUNT 11.9 x10^3/uL (3.4-10)
[2016-12-18 15:14] LABS: ASPARTATE AMINO TRANSFERASE 12 U/L (15-37); BLOOD UREA NITROGEN 33 mg/dL (7-18)
[2016-12-18] MEDS ORDERED: HEPARIN 5,000 UNITS/ML, 1ML IV ONE (15:30)
[2016-12-18] MEDS ORDERED: HEPARIN 5,000 UNITS/ML, 1ML IV PRN (15:30)
[2016-12-18] MEDS ORDERED: HEPARIN 25,000 UNITS/500ML PMX 500 ML IV PRN (15:30)
[2016-12-18 15:40] LABS: DIFF TOTAL CELLS COUNTED 100 CELL DIFF
[2016-12-18 15:45] LABS: VERIFY COUNTS? YES
[2016-12-18 15:46] LABS: ANISOCYTOSIS 1+
[2016-12-18] MEDS ORDERED: SODIUM CHLORIDE 0.9% 1,000 ML IV SCH (16:00)
[2016-12-18] MEDS ORDERED: ONDANSETRON 2MG/ML, 2ML IVPush PRN (16:00)
[2016-12-18 16:31] VITALS: BP 136/80
[2016-12-18] MEDS: VANCOMYCIN 50 MG/ML ORAL SUSP PO SCH ×2 (17:00→22:48)
[2016-12-18] MEDS: MORPHINE SULFATE 4 MG/ML, 1ML IVPush PRN ×2 (18:43→23:18)
[2016-12-18 20:01] VITALS: BP 120/63
[2016-12-18] MEDS: OXYcodone/APAP 5/325MG TABLET PO PRN (20:46)
[2016-12-19 01:46] VITALS: BP 114/58
[2016-12-19] MEDS: LEVOTHYROXINE 75 MCG TABLET PO SCH (04:42)
[2016-12-19] MEDS: MORPHINE SULFATE 4 MG/ML, 1ML IVPush PRN (04:42)
[2016-12-19] MEDS: VANCOMYCIN 50 MG/ML ORAL SUSP PO SCH ×3 (04:42→20:47)
[2016-12-19 05:14] LABS: BLOOD UREA NITROGEN 31 mg/dL (7-18)
[2016-12-19 05:24] LABS: HEMATOCRIT 29.2 % (39.2-51.8); HEMOGLOBIN 9.9 g/dL (13.7-18.0); WHITE BLOOD COUNT 12.9 x10^3/uL (3.4-10)
[2016-12-19] MEDS ORDERED: MAGNESIUM SULFATE PMX 2GM/50ML 50 ML IV ONE ×2 (06:00→19:00)
[2016-12-19 08:13] VITALS: BP 144/81
[2016-12-19] MEDS: CYANOCOBALAMIN 1,000 MCG TABLET PO SCH (08:15)
[2016-12-19] MEDS: TAMSULOSIN 0.4 MG CAP.ER.24H PO SCH (08:16)
[2016-12-19] MEDS: OMEPRAZOLE 20 MG CAPSULE.DR PO SCH (08:17)
[2016-12-19] MEDS: FOLIC ACID 1 MG TABLET PO SCH (08:17)
[2016-12-19] MEDS: OXYcodone/APAP 5/325MG TABLET PO PRN ×2 (08:31→13:49)
[2016-12-19] MEDS ORDERED: COLESTIPOL 1 GM TABLET PO SCH (09:00)
[2016-12-19] MEDS ORDERED: SODIUM CHLORIDE 0.9%, 500ML IVBOLUS ONE (09:00)
[2016-12-19] MEDS ORDERED: HYDROmorphone 1 MG/ML, 1ML IV ONE (09:00)
[2016-12-19] MEDS ORDERED: SODIUM CHLORIDE 0.9% 1,000ML IVBOLUS ONE (10:30)
[2016-12-19] MEDS ORDERED: PIPERACILLIN/TAZO/PMX 4.5GM 100 ML IVPB SCH (10:30)
[2016-12-19] MEDS ORDERED: PHARMACY MAY ADJ FOR RENAL FX MC PRN ×2 (10:30)
[2016-12-19] MEDS ORDERED: VANCOMYCIN PER PHARMACY MC PRN (10:30)
[2016-12-19] MEDS ORDERED: PHARMACOKINETIC MONITORING MC PRN (11:00)
[2016-12-19] MEDS ORDERED: VANCOMYCIN 1,600 MG in SODIUM CHLORIDE 0.9% 250 ML IV ONE (11:30)
[2016-12-19] MEDS: PIPERACILLIN/TAZO/PMX 3.375GM 50 ML IVPB SCH ×2 (12:14→18:46)
[2016-12-19 12:31] VITALS: BP 124/77
[2016-12-19] MEDS ORDERED: HYDROmorphone 1 MG/ML, 1ML IM PRN (14:00)
[2016-12-19 14:38] LABS: IS PT STATUS REG ER OR PRE ER? NO
[2016-12-19 17:30] VITALS: BP 110/64
[2016-12-19] MEDS ORDERED: MAALOX/HYOSCYAMINE/LIDOCAINE 45 ML BTL PO ONE (19:00)
[2016-12-19 19:02] LABS: BLOOD UREA NITROGEN 36 mg/dL (7-18)
[2016-12-19 19:24] VITALS: BP 110/68
[2016-12-19] MEDS ORDERED: HYDROmorphone 1 MG/ML, 1ML ONE (21:13)
[2016-12-19] MEDS: HYDROmorphone 1 MG/ML, 1ML IV PRN (21:21)
[2016-12-19] MEDS: SODIUM CHLORIDE 0.9% 1,000 ML IV SCH (23:17)
[2016-12-20 00:23] LABS: IS PT STATUS REG ER OR PRE ER? NO
[2016-12-20 00:57] VITALS: BP 126/72
[2016-12-20] MEDS: VANCOMYCIN 50 MG/ML ORAL SUSP PO SCH ×4 (01:16→20:52)
[2016-12-20] MEDS: PIPERACILLIN/TAZO/PMX 3.375GM 50 ML IVPB SCH ×4 (01:16→20:52)
[2016-12-20] MEDS: LEVOTHYROXINE 75 MCG TABLET PO SCH (05:27)
[2016-12-20] MEDS: SODIUM CHLORIDE 0.9% 1,000 ML IV SCH ×3 (05:27→20:52)
[2016-12-20 05:55] LABS: HEMATOCRIT 29.9 % (39.2-51.8); WHITE BLOOD COUNT 29.5 x10^3/uL (3.4-10)
[2016-12-20 06:01] LABS: BLOOD UREA NITROGEN 42 mg/dL (7-18)
[2016-12-20 06:05] LABS: IS PT STATUS REG ER OR PRE ER? YES
[2016-12-20 07:41] VITALS: BP 128/67
[2016-12-20] MEDS ORDERED: BISACODYL 10 MG SUPP ONE (09:07)
[2016-12-20] MEDS: FOLIC ACID 1 MG TABLET PO SCH (09:19)
[2016-12-20] MEDS: CYANOCOBALAMIN 1,000 MCG TABLET PO SCH (09:19)
[2016-12-20] MEDS: OMEPRAZOLE 20 MG CAPSULE.DR PO SCH (09:19)
[2016-12-20] MEDS: TAMSULOSIN 0.4 MG CAP.ER.24H PO SCH (09:20)
[2016-12-20] MEDS: HYDROmorphone 1 MG/ML, 1ML IV PRN ×3 (09:20→22:35)
[2016-12-20] MEDS ORDERED: BISACODYL 10 MG SUPP PR PRN (09:30)
[2016-12-20 13:15] VITALS: BP 109/63
[2016-12-20 21:00] VITALS: BP 105/68
[2016-12-21] MEDS: PIPERACILLIN/TAZO/PMX 3.375GM 50 ML IVPB SCH ×2 (03:06→07:59)
[2016-12-21] MEDS: VANCOMYCIN 50 MG/ML ORAL SUSP PO SCH ×4 (03:06→22:18)
[2016-12-21 03:14] VITALS: BP 111/70
[2016-12-21 04:59] LABS: HEMATOCRIT 26.6 % (39.2-51.8); HEMOGLOBIN 8.8 g/dL (13.7-18.0); WHITE BLOOD COUNT 17.2 x10^3/uL (3.4-10)
[2016-12-21 05:05] LABS: BLOOD UREA NITROGEN 48 mg/dL (7-18)
[2016-12-21 05:09] LABS: ASPARTATE AMINO TRANSFERASE 9 U/L (15-37)
[2016-12-21] MEDS: LEVOTHYROXINE 75 MCG TABLET PO SCH (06:34)
[2016-12-21] MEDS: TAMSULOSIN 0.4 MG CAP.ER.24H PO SCH (07:55)
[2016-12-21] MEDS: OMEPRAZOLE 20 MG CAPSULE.DR PO SCH (07:56)
[2016-12-21] MEDS: FOLIC ACID 1 MG TABLET PO SCH (07:56)
[2016-12-21 07:58] VITALS: BP 95/62
[2016-12-21] MEDS: CYANOCOBALAMIN 1,000 MCG TABLET PO SCH (07:58)
[2016-12-21] MEDS: SODIUM CHLORIDE 0.9% 1,000 ML IV SCH ×3 (08:01→22:24)
[2016-12-21] MEDS ORDERED: BISACODYL 10 MG SUPP PR ONE (09:00)
[2016-12-21] MEDS: OXYcodone/APAP 5/325MG TABLET PO PRN (12:55)
[2016-12-21 13:55] LABS: OCCBLD OBC PASS
[2016-12-21] MEDS ORDERED: PIPERACILLIN/TAZO 3.375 GM in SODIUM CHLORIDE 0.9% 50 ML IVPB SCH (14:00)
[2016-12-21 15:19] VITALS: BP 100/62
[2016-12-21] MEDS: PIPERACILLIN/TAZO 3.375 GM in SODIUM CHLORIDE 0.9% 50 ML IVPB SCH ×2 (15:35→22:18)
[2016-12-21 21:50] VITALS: BP 112/69
[2016-12-22 03:08] VITALS: BP 110/72
[2016-12-22] MEDS: VANCOMYCIN 50 MG/ML ORAL SUSP PO SCH ×4 (03:24→20:43)
[2016-12-22] MEDS: PIPERACILLIN/TAZO 3.375 GM in SODIUM CHLORIDE 0.9% 50 ML IVPB SCH ×2 (03:24→10:19)
[2016-12-22 05:36] LABS: HEMOGLOBIN 8.5 g/dL (13.7-18.0); WHITE BLOOD COUNT 16.6 x10^3/uL (3.4-10)
[2016-12-22 05:46] LABS: BLOOD UREA NITROGEN 50 mg/dL (7-18)
[2016-12-22] MEDS: LEVOTHYROXINE 75 MCG TABLET PO SCH (06:14)
[2016-12-22 08:30] VITALS: BP 118/62
[2016-12-22] MEDS: CYANOCOBALAMIN 1,000 MCG TABLET PO SCH (09:50)
[2016-12-22] MEDS: FOLIC ACID 1 MG TABLET PO SCH (09:52)
[2016-12-22] MEDS: OMEPRAZOLE 20 MG CAPSULE.DR PO SCH (09:59)
[2016-12-22] MEDS: TAMSULOSIN 0.4 MG CAP.ER.24H PO SCH (10:03)
[2016-12-22] MEDS: SODIUM CHLORIDE 0.9% 1,000 ML IV SCH ×3 (10:21→23:50)
[2016-12-22] MEDS ORDERED: MAALOX/HYOSCYAMINE/LIDOCAINE 45 ML BTL PO ONE (11:30)
[2016-12-22 13:48] VITALS: BP 156/56
[2016-12-22] MEDS ORDERED: BENZOCAINE 20% SPRAY 0.5ML TP ONE (14:00)
[2016-12-22 14:29] LABS: IS PT STATUS REG ER OR PRE ER? NO
[2016-12-22] MEDS ORDERED: CEFTRIAXONE 1,000 MG IM SCH (14:30)
[2016-12-22] MEDS ORDERED: HEPARIN 5,000 UNITS/ML, 1ML SQ SCH (14:30)
[2016-12-22] MEDS ORDERED: CEFTRIAXONE 1,000 MG IV ONE (15:30)
[2016-12-22] MEDS ORDERED: CEFTRIAXONE PMX 1GM/50ML 50 ML IV ONE (16:00)
[2016-12-22] MEDS: GUAIFENESIN 100 MG/5 ML, 10ML UDC PO PRN (16:06)
[2016-12-22] MEDS ORDERED: HEPARIN 5,000 UNITS/ML, 1ML IV ONE (17:00)
[2016-12-22] MEDS: HEPARIN 25,000 UNITS/500ML PMX 500 ML IV PRN (17:37)
[2016-12-22 19:16] VITALS: BP 149/50
[2016-12-22 20:44] LABS: IS PT STATUS REG ER OR PRE ER? NO
[2016-12-23 00:55] VITALS: BP 156/81
[2016-12-23] MEDS: HEPARIN 5,000 UNITS/ML, 1ML IV PRN ×3 (00:58→22:13)
[2016-12-23] MEDS: VANCOMYCIN 50 MG/ML ORAL SUSP PO SCH ×4 (03:10→22:13)
[2016-12-23] MEDS: LEVOTHYROXINE 75 MCG TABLET PO SCH (05:15)
[2016-12-23] MEDS ORDERED: FLU VACC QS2017-18 (36MOS+) UP/PF 0.5 ML IM-VACC ONE (06:30)
[2016-12-23 07:48] LABS: BLOOD UREA NITROGEN 52 mg/dL (7-18); HEMATOCRIT 29.2 % (39.2-51.8); HEMOGLOBIN 9.5 g/dL (13.7-18.0); WHITE BLOOD COUNT 15.8 x10^3/uL (3.4-10)
[2016-12-23] MEDS: TAMSULOSIN 0.4 MG CAP.ER.24H PO SCH (08:43)
[2016-12-23] MEDS: FOLIC ACID 1 MG TABLET PO SCH (08:43)
[2016-12-23] MEDS: OMEPRAZOLE 20 MG CAPSULE.DR PO SCH (08:43)
[2016-12-23] MEDS: CYANOCOBALAMIN 1,000 MCG TABLET PO SCH (08:43)
[2016-12-23] MEDS: GUAIFENESIN 100 MG/5 ML, 10ML UDC PO PRN (08:43)
[2016-12-23] MEDS: OXYcodone/APAP 5/325MG TABLET PO PRN (08:43)
[2016-12-23] MEDS: SODIUM CHLORIDE 0.9% 1,000 ML IV SCH (08:44)
[2016-12-23 08:51] VITALS: BP 144/72
[2016-12-23] MEDS ORDERED: BENZOCAINE AEROSOL SPRAY 20%, 60ML TP ONE (09:00)
[2016-12-23 10:03] LABS: ABG COLLECTION SITE RIGHT RADIAL; COLLATERAL CIRCULATION TESTING NORMAL
[2016-12-23 12:20] LABS: POTASSIUM,URINE RANDOM 19 mmol/L
[2016-12-23] MEDS: NYSTATIN 500,000 UNITS/5 ML UDC PO SCH ×3 (12:50→22:13)
[2016-12-23] MEDS: LACTATED RINGERS 1,000 ML IV SCH (12:51)
[2016-12-23] MEDS ORDERED: BENZOCAINE 20% SPRAY 0.5ML TP ONE (13:00)
[2016-12-23 13:19] VITALS: BP 152/86
[2016-12-23] MEDS: CEFTRIAXONE PMX 1GM/50ML 50 ML IV SCH (14:05)
[2016-12-23] MEDS ORDERED: CEFTRIAXONE 1,000 MG IV SCH (14:30)
[2016-12-23] MEDS: HEPARIN 25,000 UNITS/500ML PMX 500 ML IV PRN (17:31)
[2016-12-23 19:09] VITALS: BP 138/77
[2016-12-23 23:15] LABS: HEMATOCRIT 28.4 % (39.2-51.8); HEMOGLOBIN 9.4 g/dL (13.7-18.0); WHITE BLOOD COUNT 16.3 x10^3/uL (3.4-10)
[2016-12-23 23:27] VITALS: BP 146/90
[2016-12-24] MEDS: PANTOPRAZOLE 40 MG IV IVPush SCH ×2 (00:17→12:32)
[2016-12-24] MEDS: LACTATED RINGERS 1,000 ML IV SCH ×3 (00:25→14:50)
[2016-12-24 01:11] VITALS: BP 148/85
[2016-12-24] MEDS: VANCOMYCIN 50 MG/ML ORAL SUSP PO SCH (04:40)
[2016-12-24 05:07] LABS: BLOOD UREA NITROGEN 52 mg/dL (7-18)
[2016-12-24 05:16] LABS: HEMATOCRIT 27.3 % (39.2-51.8); WHITE BLOOD COUNT 14.6 x10^3/uL (3.4-10)
[2016-12-24] MEDS: LEVOTHYROXINE 75 MCG TABLET PO SCH (05:34)
[2016-12-24] MEDS: NYSTATIN 500,000 UNITS/5 ML UDC PO SCH ×4 (05:34→21:55)
[2016-12-24 08:00] VITALS: BP 126/82
[2016-12-24] MEDS: CYANOCOBALAMIN 1,000 MCG TABLET PO SCH (08:08)
[2016-12-24] MEDS: TAMSULOSIN 0.4 MG CAP.ER.24H PO SCH (08:08)
[2016-12-24] MEDS: FOLIC ACID 1 MG TABLET PO SCH (08:08)
[2016-12-24] MEDS: LIDODERM 5% PATCH TD SCH (11:12)
[2016-12-24 14:00] VITALS: BP 135/89
[2016-12-24] MEDS: CEFTRIAXONE PMX 1GM/50ML 50 ML IV SCH (14:44)
[2016-12-24] MEDS: HYDROmorphone 1 MG/ML, 1ML IV PRN (14:45)
[2016-12-24 20:37] VITALS: BP 152/92
[2016-12-25] MEDS: PANTOPRAZOLE 40 MG IV IVPush SCH ×2 (00:13→12:10)
[2016-12-25 00:23] VITALS: BP 144/87
[2016-12-25] MEDS: LACTATED RINGERS 1,000 ML IV SCH ×3 (04:10→21:54)
[2016-12-25 05:10] LABS: HEMATOCRIT 28.5 % (39.2-51.8); HEMOGLOBIN 9.4 g/dL (13.7-18.0); WHITE BLOOD COUNT 12.9 x10^3/uL (3.4-10)
[2016-12-25] MEDS: LEVOTHYROXINE 75 MCG TABLET PO SCH (05:17)
[2016-12-25] MEDS: NYSTATIN 500,000 UNITS/5 ML UDC PO SCH ×4 (05:17→21:54)
[2016-12-25 05:28] LABS: BLOOD UREA NITROGEN 51 mg/dL (7-18)
[2016-12-25] MEDS ORDERED: BENZOCAINE 20% SPRAY 0.5ML TP PRN (07:30)
[2016-12-25 07:31] VITALS: BP 154/84
[2016-12-25] MEDS: CYANOCOBALAMIN 1,000 MCG TABLET PO SCH (08:53)
[2016-12-25] MEDS: FOLIC ACID 1 MG TABLET PO SCH (08:53)
[2016-12-25] MEDS: TAMSULOSIN 0.4 MG CAP.ER.24H PO SCH (08:54)
[2016-12-25] MEDS: LIDODERM 5% PATCH TD SCH (12:08)
[2016-12-25] MEDS: CEFTRIAXONE PMX 1GM/50ML 50 ML IV SCH (14:54)
[2016-12-25 15:27] VITALS: BP 129/76
[2016-12-25] MEDS: PANTOPROZOLE 40MG TABLET PO SCH (18:25)
[2016-12-25 20:50] VITALS: BP 130/73
[2016-12-25 23:40] LABS: OCCBLD OBC PASS
[2016-12-26 04:00] VITALS: BP 133/76
[2016-12-26] MEDS: HYDROmorphone 1 MG/ML, 1ML IV PRN (05:14)
[2016-12-26 05:15] LABS: HEMATOCRIT 25.3 % (39.2-51.8); HEMOGLOBIN 8.4 g/dL (13.7-18.0); WHITE BLOOD COUNT 8.1 x10^3/uL (3.4-10)
[2016-12-26] MEDS: LEVOTHYROXINE 75 MCG TABLET PO SCH (05:16)
[2016-12-26] MEDS: NYSTATIN 500,000 UNITS/5 ML UDC PO SCH ×4 (05:16→21:16)
[2016-12-26 05:26] LABS: BLOOD UREA NITROGEN 47 mg/dL (7-18)
[2016-12-26] MEDS: LACTATED RINGERS 1,000 ML IV SCH ×2 (06:43→15:01)
[2016-12-26 08:06] VITALS: BP 139/83
[2016-12-26] MEDS: TAMSULOSIN 0.4 MG CAP.ER.24H PO SCH (09:47)
[2016-12-26] MEDS: PANTOPROZOLE 40MG TABLET PO SCH ×2 (09:47→16:22)
[2016-12-26] MEDS: ACETAMINOPHEN 500 MG TABLET PO SCH ×2 (09:47→21:15)
[2016-12-26] MEDS: CYANOCOBALAMIN 1,000 MCG TABLET PO SCH (09:48)
[2016-12-26] MEDS: FOLIC ACID 1 MG TABLET PO SCH (09:48)
[2016-12-26 14:16] VITALS: BP 135/74
[2016-12-26] MEDS: CEFTRIAXONE PMX 1GM/50ML 50 ML IV SCH (14:40)
[2016-12-26 21:14] VITALS: BP 138/74
[2016-12-26] MEDS: LIDODERM 5% PATCH TD SCH (21:15)
[2016-12-27] VITALS (8 sets, daily range): BP systolic 111–138; BP diastolic 62–85
[2016-12-27] MEDS: LACTATED RINGERS 1,000 ML IV SCH ×2 (00:12→08:02)
[2016-12-27] MEDS: NYSTATIN 500,000 UNITS/5 ML UDC PO SCH ×4 (05:34→22:12)
[2016-12-27] MEDS: LEVOTHYROXINE 75 MCG TABLET PO SCH (05:38)
[2016-12-27 05:46] LABS: HEMOGLOBIN 7.2 g/dL (13.7-18.0); WHITE BLOOD COUNT 5.2 x10^3/uL (3.4-10)
[2016-12-27 05:59] LABS: BLOOD UREA NITROGEN 43 mg/dL (7-18)
[2016-12-27] MEDS: PANTOPROZOLE 40MG TABLET PO SCH ×2 (08:40→16:15)
[2016-12-27] MEDS: ACETAMINOPHEN 500 MG TABLET PO SCH ×3 (08:40→21:00)
[2016-12-27] MEDS: CYANOCOBALAMIN 1,000 MCG TABLET PO SCH (08:40)
[2016-12-27] MEDS: FOLIC ACID 1 MG TABLET PO SCH (08:40)
[2016-12-27] MEDS: TAMSULOSIN 0.4 MG CAP.ER.24H PO SCH (08:40)
[2016-12-27] MEDS: CEFTRIAXONE PMX 1GM/50ML 50 ML IV SCH (14:00)
[2016-12-27 19:04] LABS: HEMATOCRIT 25.7 % (39.2-51.8); HEMOGLOBIN 8.2 g/dL (13.7-18.0)
[2016-12-27] MEDS ORDERED: PHARMACY MAY ADJ FOR RENAL FX MC PRN (21:30)
[2016-12-27] MEDS: LIDODERM 5% PATCH TD SCH (22:00)
[2016-12-28 03:00] VITALS: BP 136/70
[2016-12-28] MEDS: LACTATED RINGERS 1,000 ML IV SCH ×2 (03:05→19:00)
[2016-12-28 05:19] LABS: HEMATOCRIT 25.9 % (39.2-51.8); HEMOGLOBIN 8.4 g/dL (13.7-18.0)
[2016-12-28 05:28] LABS: BLOOD UREA NITROGEN 34 mg/dL (7-18)
[2016-12-28 06:30] VITALS: BP 130/70
[2016-12-28] MEDS: ACETAMINOPHEN 500 MG TABLET PO SCH ×2 (09:00→21:00)
[2016-12-28] MEDS: FOLIC ACID 1 MG TABLET PO SCH (09:58)
[2016-12-28] MEDS: LEVOTHYROXINE 75 MCG TABLET PO SCH (09:58)
[2016-12-28] MEDS: NYSTATIN 500,000 UNITS/5 ML UDC PO SCH ×4 (09:58→21:03)
[2016-12-28] MEDS: PANTOPROZOLE 40MG TABLET PO SCH ×2 (09:58→17:10)
[2016-12-28] MEDS: TAMSULOSIN 0.4 MG CAP.ER.24H PO SCH (09:58)
[2016-12-28] MEDS: CYANOCOBALAMIN 1,000 MCG TABLET PO SCH (09:58)
[2016-12-28 13:10] VITALS: BP 145/79
[2016-12-28] MEDS: CEFTRIAXONE PMX 1GM/50ML 50 ML IV SCH (13:29)
[2016-12-28 18:46] VITALS: BP 147/76
[2016-12-28] MEDS: LIDODERM 5% PATCH TD SCH (21:03)
[2016-12-28] MEDS: CEFDINIR 300 MG CAPSULE PO SCH (21:03)
[2016-12-29 01:11] VITALS: BP 120/70
[2016-12-29 05:01] LABS: BLOOD UREA NITROGEN 29 mg/dL (7-18)
[2016-12-29 05:02] LABS: HEMATOCRIT 24.1 % (39.2-51.8); WHITE BLOOD COUNT 5.1 x10^3/uL (3.4-10)
[2016-12-29] MEDS: LACTATED RINGERS 1,000 ML IV SCH (05:17)
[2016-12-29] MEDS: NYSTATIN 500,000 UNITS/5 ML UDC PO SCH ×4 (05:54→21:18)
[2016-12-29] MEDS: LEVOTHYROXINE 75 MCG TABLET PO SCH (05:54)
[2016-12-29 06:50] VITALS: BP 134/71
[2016-12-29 08:30] VITALS: BP 136/72
[2016-12-29] MEDS: CYANOCOBALAMIN 1,000 MCG TABLET PO SCH (09:44)
[2016-12-29] MEDS: FOLIC ACID 1 MG TABLET PO SCH (09:44)
[2016-12-29] MEDS: TAMSULOSIN 0.4 MG CAP.ER.24H PO SCH (09:44)
[2016-12-29] MEDS: PANTOPROZOLE 40MG TABLET PO SCH ×2 (09:44→17:29)
[2016-12-29] MEDS: CEFDINIR 300 MG CAPSULE PO SCH ×2 (09:44→21:18)
[2016-12-29] MEDS: ACETAMINOPHEN 500 MG TABLET PO SCH ×2 (10:01→21:00)
[2016-12-29 13:34] VITALS: BP 99/65
[2016-12-29 18:50] VITALS: BP 131/69
[2016-12-29] MEDS: LIDODERM 5% PATCH TD SCH (22:00)
[2016-12-30 01:58] VITALS: BP 133/72
[2016-12-30 04:52] LABS: HEMATOCRIT 23.5 % (39.2-51.8); HEMOGLOBIN 7.8 g/dL (13.7-18.0); WHITE BLOOD COUNT 5.5 x10^3/uL (3.4-10)
[2016-12-30 05:07] LABS: BLOOD UREA NITROGEN 28 mg/dL (7-18)
[2016-12-30] MEDS: NYSTATIN 500,000 UNITS/5 ML UDC PO SCH ×2 (06:23→11:13)
[2016-12-30] MEDS: LEVOTHYROXINE 75 MCG TABLET PO SCH (06:23)
[2016-12-30 08:08] VITALS: BP 130/72
[2016-12-30] MEDS: CYANOCOBALAMIN 1,000 MCG TABLET PO SCH (08:09)
[2016-12-30] MEDS: ACETAMINOPHEN 500 MG TABLET PO SCH (08:09)
[2016-12-30] MEDS: CEFDINIR 300 MG CAPSULE PO SCH (08:09)
[2016-12-30] MEDS: TAMSULOSIN 0.4 MG CAP.ER.24H PO SCH (08:09)
[2016-12-30] MEDS: FOLIC ACID 1 MG TABLET PO SCH (08:09)
[2016-12-30] MEDS: PANTOPROZOLE 40MG TABLET PO SCH (08:09)
[2016-12-30] MEDS ORDERED: LACTATED RINGERS 1,000 ML IV SCH (09:30)
[2016-12-30] MEDS ORDERED: PANT40TA5 PO (12:47)
[2016-12-30] MEDS ORDERED: CEFD300C37 PO (12:47)
== END 2016-12-30 15:25 | DRG 871 ==
LOC: ED 14:53 → EDIP 14:54 → ED 15:41 → 3NW 16:19 → 5SO 12-19 16:48
PROVIDERS: ADMIT Family Medicine; ATTEND Family Medicine
PROC: 30233N1 Transfusion of Nonautologous Red Blood Cells into Peripheral Vein, Percutaneous Approach (ICD-10-PCS; principal; 2016-12-27)
DX: A41.59 Other Gram-negative sepsis (principal); I26.99 Other pulmonary embolism without acute cor pulmonale; J15.0 Pneumonia due to Klebsiella pneumoniae; K56.600 Partial intestinal obstruction, unspecified as to cause; A04.72 Enterocolitis due to Clostridium difficile, not specified as recurrent; I82.411 Acute embolism and thrombosis of right femoral vein; N17.9 Acute kidney failure, unspecified; E87.2 Acidosis; N12 Tubulo-interstitial nephritis, not specified as acute or chronic; C18.9 Malignant neoplasm of colon, unspecified; R64 Cachexia; N39.0 Urinary tract infection, site not specified; I82.431 Acute embolism and thrombosis of right popliteal vein; I82.412 Acute embolism and thrombosis of left femoral vein; I82.432 Acute embolism and thrombosis of left popliteal vein; K92.2 Gastrointestinal hemorrhage, unspecified; E83.42 Hypomagnesemia; N18.9 Chronic kidney disease, unspecified; R65.20 Severe sepsis without septic shock; D50.0 Iron deficiency anemia secondary to blood loss (chronic); B96.1 Klebsiella pneumoniae [K. pneumoniae] as the cause of diseases classified elsewhere; Z66 Do not resuscitate; Z96.653 Presence of artificial knee joint, bilateral; E03.9 Hypothyroidism, unspecified; I25.10 Atherosclerotic heart disease of native coronary artery without angina pectoris; Z90.3 Acquired absence of stomach [part of]; Z87.891 Personal history of nicotine dependence; Z86.711 Personal history of pulmonary embolism; Z85.46 Personal history of malignant neoplasm of prostate; Z85.038 Personal history of other malignant neoplasm of large intestine; Z23 Encounter for immunization; Z90.79 Acquired absence of other genital organ(s); Z90.49 Acquired absence of other specified parts of digestive tract; Z68.26 Body mass index [BMI] 26.0-26.9, adult
CPT/HCPCS: 36415; 36600; 71010; 74176; 78582; 80048; 80053; 80202; 81001; 82040; 82272; 82436; 82803; 83605; 83735; 84100; 84133; 84145; 84300; 84484; 85014; 85018; 85025; 85520; 85610; 85730; 86850; 86900; 86923; 87040; 87077; 87086; 87186; 87205; 87324; 90686; 93005; 93970; 96374; 96375; J0696; J1170; J1644; J2405; J2543; J3370; A9540; A9558; C9113; C9898; J3475; J7030; J7050; J7120; P9016